=== PATIENT | male | born 1960 | race Caucasian/White ===

== ENCOUNTER 2017-06-17 12:39 | Emergency (ER) | payer OTHER ==
[~2017-06-17] VITALS: Ht 172.7 cm; Wt 91.2 kg
[2017-06-17 12:47] VITALS: BP 149/90
[2017-06-17] MEDS ORDERED: PERCOCET 5/31 TABLET PO (15:20)
[2017-06-17] MEDS ORDERED: KEFLEX500 MG PO (15:20)
== END 2017-06-17 15:45 | disposition home or self-care (01) ==
LOC: EME 12:39
DX: S62.636B Displaced fracture of distal phalanx of right little finger, initial encounter for open fracture (principal); W29.8XXA Contact with other powered hand tools and household machinery, initial encounter; Z23 Encounter for immunization; I10 Essential (primary) hypertension
CPT/HCPCS: 73140; 99281; 99284; S0020

== ENCOUNTER 2017-10-16 13:46 | Emergency (ER) | payer BC ==
[~2017-10-16] VITALS: Ht 172.7 cm; Wt 90.7 kg
[~2017-10-16 13:46] MED LIST: KEFLEX500 MG PO; PERCOCET 5/31 TABLET PO
[2017-10-16 15:10] LABS: HEMATOCRIT 41.6 % (38.0-50.0); HEMOGLOBIN 14.2 G/DL (12.5-16.6); MCH 31.5 PG (29.0-34.0); MCHC 34.1 G/DL (30.0-36.0); MCV 92.2 FL (86-99); PLATELET COUNT 290 K/uL (156-360); RBC DIS.WIDTH-CV 12.6 % (11.8-14.6); RBC DIS.WIDTH-SD 42.9 % (39-53); RED BLOOD COUNT 4.51 M/uL (4.00-5.50); WHITE BLOOD COUNT 10.8 K/uL (4.1-10.2)
[2017-10-16 15:17] LABS: APPEARANCE CLEAR ((CLEAR)); BILIRUBIN NEGATIVE; BLOOD NEGATIVE; COLOR YELLOW ((YELLOW)); GLUCOSE (STRIP) NEGATIVE; KETONES NEGATIVE; LEUKOCYTES NEGATIVE; NITRITE NEGATIVE; PROTEIN (STRIP) NEGATIVE; SPECIFIC GRAVITY 1.024 (1.000-1.030); UCUL ADDED? NO; UROBILINOGEN 0.2 MG/DL (0.2-1.0)
[2017-10-16 15:19] LABS: CHLORIDE 111 mEq/L (99-109); POTASSIUM 4.6 mEq/L (3.7-5.4); SODIUM 144 mEq/L (136-147)
[2017-10-16 15:21] LABS: GLUCOSE 104 mg/dL (70-99)
[2017-10-16 15:25] LABS: CREATININE 1.8 mg/dL (0.6-1.3); GFR ESTIMATE (CALCULATED) 42 mL/min/ (58.99-99999)
[2017-10-16 15:26] LABS: UREA NITROGEN (BUN) 20 mg/dL (9-23)
[2017-10-16] MEDS ORDERED: MOTRIN800 MG PO (18:56)
[2017-10-16] MEDS ORDERED: FLOMAX0.4 MG PO (18:56)
[2017-10-16] MEDS ORDERED: PERCOCET 5/31 TABLET PO (18:56)
[2017-10-16] MEDS ORDERED: ZOFRAN4 MG PO (18:56)
[2017-10-16 19:48] VITALS: BP 142/74
[2017-10-20] MEDS ORDERED: BYSTOLIC5 MG PO (11:24)
== END 2017-10-16 19:49 | disposition home or self-care (01) ==
LOC: EME 13:46
DX: R10.9 Unspecified abdominal pain (principal); N13.2 Hydronephrosis with renal and ureteral calculous obstruction; K57.30 Diverticulosis of large intestine without perforation or abscess without bleeding; K40.20 Bilateral inguinal hernia, without obstruction or gangrene, not specified as recurrent; Z87.442 Personal history of urinary calculi
CPT/HCPCS: 74176; 80048; 81003; 85027; 99281; 99285; J1885; J2405; J7030

== ENCOUNTER 2017-10-21 10:51 | Day surgery (SDC) | payer BC ==
[~2017-10-21] VITALS: Ht 172.7 cm; Wt 88.4 kg
[~2017-10-21 10:51] MED LIST changes: +BYSTOLIC5 MG PO; +FLOMAX0.4 MG PO; +MOTRIN800 MG PO; +ZOFRAN4 MG PO
[2017-10-21 11:43] VITALS: BP 141/90
[2017-10-21 11:51] VITALS: BP 141/90
[2017-10-21 13:55] VITALS: BP 130/55
[2017-10-21 15:45] VITALS: BP 143/78
== END 2017-10-21 15:45 | disposition home or self-care (01) ==
LOC: SDC 10:51
DX: N20.1 Calculus of ureter (principal); I10 Essential (primary) hypertension; N40.0 Benign prostatic hyperplasia without lower urinary tract symptoms; Z87.442 Personal history of urinary calculi; Z88.8 Allergy status to other drugs, medicaments and biological substances; Z82.49 Family history of ischemic heart disease and other diseases of the circulatory system; Z83.3 Family history of diabetes mellitus
CPT/HCPCS: 74018; 76000; 84153; C2625; J0690; J1580; J2250; J2405; J2710; J2765; J3010; J7643